=== PATIENT | male | born 1960 | race African-American/Black ===

== ENCOUNTER 2024-03-14 18:36 | Emergency (ER) | payer OTHER, SELFPAY ==
[2024-03-14] VITALS (7 sets, daily range): BP systolic 142–163; BP diastolic 80–93; BMI 22.6
[2024-03-14 18:59] LABS: % Basophils 0.4 % (0-2); % Eosinophils 1.6 % (0-6); % Immature Granulocytes 0.3 % (0-0.5); % Lymphocytes 23.6 % (20.5-51.1); % Neutrophils 66.1 % (42.2-75.2); Absolute Eosinophils 0.1 10^3/uL (0-0.7); Absolute Lymphocytes 1.6 10^3/uL (1.2-3.4); Absolute Monocytes 0.6 10^3/uL (0.1-0.6); Absolute Neutrophils 4.6 10^3/uL (1.4-6.5); Hematocrit 36.6 % (39.0-52.0); Hemoglobin 12.6 g/dL (13.0-18.0); Mean Corp Hgb Conc. 34.4 g/dL (33.0-37.0); Mean Corpuscular Hgb 29.9 pg (27.0-31.0); Mean Corpuscular Volume 86.7 fL (80.0-94.0); Nucleated Red Blood Cells % 0 % (-); Platelet Count 282 10^3/uL (130-400); Red Blood Cell Count 4.22 10^6/uL (4.70-6.10); Red Cell Dist. Width 13.9 % (11.5-14.5)
[2024-03-14] MEDS: NSS 1000 IV (19:00)
--- NOTE | 2024-03-14 19:04 | ED.GENMED ---
History of Present Illness
General
Chief Complaint: Alcohol Problem
Source: patient
Exam Limitations: none
Time Seen by Provider: 03/14/24 18:55
History of Present Illness
History of Present Illness:
64-year-old male presents with request for help with his alcoholism. He states he has been drinking about 2 sixpacks a day. His last drink was 2 days ago. He has never had any withdrawal seizures from alcohol. He is requesting to be helped into
placement. He denies any current agitation diaphoresis or tremors. He has a history of hypertension and TIA. He also admits to recently experimenting with cocaine.
Phy Exam
Physical Exam
Physical Exam:
General: Well-appearing male no acute respiratory distress
HEENT: Normocephalic atraumatic
Heart: Regular rate and rhythm no murmurs
Lungs: Clear no wheeze or rales
Neurologic: No tremor alert and oriented speaking appropriately
Skin is warm not diaphoretic
Scores
Withdrawal Assessment of Alcohol
Withdrawal Assessment Completed?: No
Course
Orders/Labs/Results
Orders:
Orders
03/14/24 18:51
Alcohol Urgent
CMP [Comprehensive Metabolic Panel] Urgent
Complete Blood Count/With Diff Urgent
03/14/24 18:53
0.9% Sodium Chloride 1000 ml [Nss] 1,000 ml IV BOLUS
Abnormal Lab Results
03/14/24
18:51
RBC 4.22 L 10^6/uL
(4.70-6.10)
Hgb 12.6 L g/dL
(13.0-18.0)
Hct 36.6 L %
(39.0-52.0)
Glucose 145 H mg/dl
(70-99)
03/14/24 18:51
03/14/24 18:51
Vital Signs
Initial and Last Documented VS:
Initial Vital Signs
Temp Pulse Resp BP Pulse Ox
98.0 F 87 16 145/84 98
03/14/24 18:37 03/14/24 18:37 03/14/24 18:37 03/14/24 18:37 03/14/24 18:37
Last Documented Vital Signs
Temp Pulse Resp BP Pulse Ox
98.0 F 73 21 157/93 97
03/14/24 18:37 03/14/24 22:00 03/14/24 22:00 03/14/24 22:00 03/14/24 22:00
MDM/Problems Addressed
Differential Diagnosis Includes:
Patient request help for alcohol abuse. Will contact [facility].
Vital signs are currently stable. No signs of tremor or diaphoresis.
*Critical Care Note
Total Time (30-74mins, 75-104mins- exclusive of procedures): Not Applicable
Update Note
Update Note:
Patient has been stable here. He has been evaluated by [facility]. [facility] has a [facility] at a rehab facility [facility]. Waiting for transfer to
ED Attending Note
-
Portions of this chart may have been created with voice recognition software.� Occasional wrong word or��sound alike� substitutions may have occurred due to the inherent limitations of voice recognition software.
Discharge Plan
Departure
Patient Disposition: Acute Rehab Facility
Date of Disposition: 03/15/24
Time of Disposition: 01:57
Patient with high blood pressure during this ER visit?: No
Discharge Problem:
Alcohol abuse
Instructions: Alcohol Use Disorder (DC)
Prescriptions:
No Action
amlodipine
lisinopril
Referrals:
NONE,* [Family Provider] -
Activity Restrictions/Additional Instructions:
Please seek further treatment at the rehab center. Return if needed
Interventions
Interventions:
*Risk Screen - Suicide Last Done: 03/14/24 18:46
*General Assessment Last Done: 03/14/24 18:46
*Neglect/Abuse Screening Last Done: 03/14/24 18:46
ED- Fall Risk Assessment Last Done: 03/14/24 18:46
*ED COVID-19 Vaccine History Last Done: 03/14/24 18:46
ED- Neurological Assessment Last Done: 03/14/24 18:57
ED-Psychological Assessment Last Done: 03/14/24 18:57
Discharge Date and Time
Print Language: GIBRALTARIAN
[2024-03-14 19:22] LABS: ALT (SGPT) 15 U/L (0-50); AST (SGOT) 20 U/L (17-59); Alkaline Phosphatase 69 U/L (38-126); Blood Urea Nitrogen 18 mg/dl (9-20); Calcium 9.5 mg/dl (8.4-10.2); Carbon Dioxide 24 mmol/L (22-30); Chloride 107 mmol/L (98-107); Estimated Creatinine Clearance 86 ml/min; Glucose 145 mg/dl (70-99); Potassium 3.9 mmol/L (3.5-5.1); Sodium 142 mmol/L (135-145); Total Bilirubin 0.4 mg/dl (0.2-1.3); Total Protein 6.6 g/dl (6.3-8.2); eGFR > 60.00
[2024-03-14 19:30] LABS: Alcohol None Detected
[2024-03-15] VITALS: BP 162/93
[2024-03-15 01:00] VITALS: BP 155/89
[2024-03-15 02:00] VITALS: BP 166/86
[2024-03-15 03:00] VITALS: BP 141/82
[2024-03-15 04:00] VITALS: BP 142/89
[2024-03-15 05:00] VITALS: BP 157/93
== END 2024-03-15 07:30 ==
LOC: EMR 18:36
PROVIDERS: EMERGENCY PHYSICIAN Student in an Organized Health Care Education/Training Program
DX: F10.20 Alcohol dependence, uncomplicated (principal); I10 Essential (primary) hypertension; Z86.73 Personal history of transient ischemic attack (TIA), and cerebral infarction without residual deficits
CPT/HCPCS: 99284; 96360; 80053; 82077; 85025